=== PATIENT | male | born 1980 | race Two or more races ===

== ENCOUNTER 2025-06-10 11:04 | Emergency (ER) | payer OTHER ==
[~2025-06-10] VITALS: Ht 185.4 cm; Wt 104.3 kg
[2025-06-10] MEDS ORDERED: KETOROLAC TROMETHAMINE 60 MG VIAL IM ONE (13:00)
[2025-06-10] MEDS ORDERED: IBUPROFEN800 MG PO (17:38)
== END 2025-06-10 18:13 | disposition home or self-care (01) ==
LOC: ER 11:04
DX: G89.11 Acute pain due to trauma (principal); M79.644 Pain in right finger(s)

== ENCOUNTER 2025-06-16 07:46 | Outpatient (CLI) | payer OTHER ==
[~2025-06-16 07:46] MED LIST: IBUPROFEN800 MG PO
== END 2025-06-16 07:49 | disposition home or self-care (01) ==
LOC: TOM 07:46
PROVIDERS: ATTEND Orthopaedic Surgery
DX: S63.282A Dislocation of proximal interphalangeal joint of right middle finger, initial encounter (principal); M79.641 Pain in right hand

== ENCOUNTER 2025-06-22 10:18 | Outpatient (CLI) | payer OTHER | END 2025-06-22 10:26 | disposition home or self-care (01) | LOC: RAD 10:18 | PROVIDERS: ATTEND Orthopaedic Surgery | DX: S62.650A Nondisplaced fracture of middle phalanx of right index finger, initial encounter for closed fracture (principal) ==

== ENCOUNTER 2025-06-27 10:25 | Day surgery (SDC) | payer OTHER ==
[2025-06-23 09:36] VITALS: BP 143/91
[2025-06-23 09:59] LABS: BASO % 0.4 % (0.1-1.2); EOS # 0.09 (0.04-0.54); EOS % 1.3 % (0.7-7.0); LYMPH # 2.10 (1.18-3.74); LYMPH % 30.0 % (19.3-53.1); MEAN PLATELET VOLUME 10.50 fl (9.4-12.4); MONO # 0.59 (0.24-0.82); MONO % 8.4 % (4.7-12.5); NEUT # 4.19 (1.56-6.13); NEUT % 59.8 % (34.0-71.1); RED CELL DISTRIBUTION WIDTH 12.6 % (11.6-14.4)
[2025-06-23 10:02] LABS: URINE APPEARANCE Clear; URINE BILIRRUBIN Negative (NEGATIVE); URINE BLOOD Negative; URINE COLOR Yellow; URINE GLUCOSE Negative (NEGATIVE); URINE KETONE Negative (NEGATIVE); URINE LEUKOCYTE Negative; URINE NITRATE Negative; URINE PROTEIN Negative (NEGATIVE); URINE UROBILINOGEN 0.2 E.U./dl
[2025-06-23 10:04] LABS: URINE RBC 4.5 uL (0.0-20.8)
[2025-06-23 10:17] LABS: INR 1.00
[2025-06-23 10:19] LABS: COL EPI 108 SECONDS (82-175)
[2025-06-23 10:28] LABS: URINE BACTERIA 3.5 uL (0.0-1933); URINE CAST 0.14 uL (0.0-1.40); URINE EPITHELIAL CELLS 0.6 uL (0.0-38.8); URINE WBC 0.3 uL (0.0-23.2)
[2025-06-23 10:51] LABS: ALT/SGPT 46.0 U/L (12-78); AST/SGOT 24.0 U/L (15-37); BILIRUBIN TOTAL 0.45 mg/dL (0.3-1.2); BUN CREA RATIO 17.0 (7.0-25.0); CREATININE SERUM 0.93 mg/dL (0.70-1.30); GFR 89.1; GLOBULINA 3.9 G/DL (2.4-3.5); GLUCOSE FASTING 96.0 mg/dL (65-100); OSMOLALITY SERUM 279.0 MOSM/KG (275-295)
[~2025-06-27] VITALS: Ht 185.4 cm; Wt 106.6 kg
[2025-06-27] MEDS ORDERED: BUPIVACAINE HCL 30 ML VIAL IV ONE (15:00)
[2025-06-27] MEDS ORDERED: CEFAZOLIN SODIUM 1,000 MG VIAL IV SCH (15:00)
[2025-06-27] MEDS ORDERED: LIDOCAINE HCL 1%/EPINEPHRINE 20ML VIAL IJ ONE (15:00)
[2025-06-27] MEDS ORDERED: MORPHINE SULFATE 4 MG/ML VIAL IV ONE (17:00)
== END 2025-06-27 17:40 | disposition home or self-care (01) ==
LOC: CIR.AMB 10:25
PROVIDERS: ATTEND Orthopaedic Surgery
DX: S63.282A Dislocation of proximal interphalangeal joint of right middle finger, initial encounter (principal)

== ENCOUNTER 2025-07-13 08:06 | Outpatient (CLI) | payer OTHER | END 2025-07-13 08:12 | disposition home or self-care (01) | LOC: RAD 08:06 | PROVIDERS: ATTEND Orthopaedic Surgery | DX: S63.283D Dislocation of proximal interphalangeal joint of left middle finger, subsequent encounter (principal) ==

== ENCOUNTER 2025-07-26 10:50 | Outpatient (CLI) | payer OTHER | END 2025-07-26 10:51 | disposition home or self-care (01) | LOC: RAD 10:50 | PROVIDERS: ATTEND Orthopaedic Surgery | DX: S63.283D Dislocation of proximal interphalangeal joint of left middle finger, subsequent encounter (principal); X58.XXXD Exposure to other specified factors, subsequent encounter ==

== ENCOUNTER 2025-09-14 07:15 | Outpatient (CLI) | payer OTHER | END 2025-09-14 07:16 | disposition home or self-care (01) | LOC: RAD 07:15 | PROVIDERS: ATTEND Orthopaedic Surgery | DX: S63.283D Dislocation of proximal interphalangeal joint of left middle finger, subsequent encounter (principal) ==